=== PATIENT | female | born 1970 | race Caucasian/White ===

== ENCOUNTER → 2016-05-11 | Outpatient (CLI) | payer MEDICARE, OTHER ==
[~2016-05-11] MED LIST: ALBU2.5V7 AEROSOL; BUPR-51 PO; CALC-7 PO; DOCU-168 PO; ENOX40DI SQ; LISI-127 PO; MESA1.2T PO; METH5TAB85 PO; OMEP-29 PO; OXYC-544 PO; POLY17PO6 PO; POTA99TA16 PO; PREN1TAB77 PO; SULF1TAB3 PO; TRAM50TA53 PO; WARF4TAB41 PO
== END ==
LOC: LAB 17:42
PROVIDERS: ATTEND Internal Medicine Gastroenterology
DX: K50.90 Crohn's disease, unspecified, without complications (principal); K52.9 Noninfective gastroenteritis and colitis, unspecified
CPT/HCPCS: 36415; 86038; 86255

== ENCOUNTER → 2016-05-12 | Outpatient (CLI) | payer MEDICARE, OTHER ==
[2016-05-12 12:44] LABS: HCT - HEMATOCRIT 37.3 % (36-46); HGB - HEMOGLOBIN 12.3 GM/DL (12-16); MEAN CORPUSCULAR HGB 29.7 UUG (26-34); MEAN CORPUSCULAR VOLUME 90.1 UM3 (80-100); MEAN PLATELET VOLUME 10.2 UM3 (9.4-12.4); RED BLOOD COUNT 4.14 M/MM3 (4.00-5.20)
[2016-05-12 12:52] LABS: ALBUMIN 2.9 G/DL (3.5-5.0); ALBUMIN/GLOBULIN RATIO 0.8 RATIO (1.1-2.2); ALKALINE PHOSPHATASE 261 U/L (38-126); ALT (SGPT) 44 U/L (9-52); ANION GAP 14 MEQ/L (5-15); AST (SGOT) 52 U/L (14-36); BUN/CREATININE RATIO 14 RATIO (6-26); CALCIUM 8.5 MG/DL (8.4-10.2); CHLORIDE 104 MEQ/L (98-107); CO2 - CARBON DIOXIDE 22 MEQ/L (22-30); CREATININE 4.1 MG/DL (0.7-1.2); GLOMERULAR FILTRATION RATE 12; GLUCOSE 97 MG/DL (65-110); POTASSIUM 4.5 MEQ/L (3.6-5); SODIUM 140 MEQ/L (134-144); TOTAL PROTEIN 6.7 G/DL (6.3-8.2)
[2016-05-12 13:06] LABS: BAND NEUTROPHILS # 1.2 T/MM3
[2016-05-12 13:07] LABS: EOSINOPHILS # (MANUAL) 0.3 T/MM3 (0-0.5); LYMPHOCYTES # (MANUAL) 1.7 T/MM3 (1-4.8); MONOCYTES # (MANUAL) 0.3 T/MM3 (0-0.8); NEUTROPHILS #(MANUAL)-ABSOLUTE 9.6 T/MM3 (1.8-7.7)
[2016-05-12 18:34] LABS: C-REACTIVE PROTEIN 426.7 MG/L (0-9)
== END ==
LOC: LAB 12:18
PROVIDERS: ATTEND Nurse Practitioner
DX: M79.1 Myalgia (principal); R00.0 Tachycardia, unspecified
CPT/HCPCS: 36415; 80053; 82550; 85025; 86140

== ENCOUNTER → 2016-06-21 | Outpatient (CLI) | payer MEDICARE, OTHER ==
[~2016-06-21] MED LIST changes: -MESA1.2T PO
[2016-06-21 15:24] LABS: BASOPHILS % (AUTO) 0.6 % (0-2); EOSINOPHILS # (AUTO) 0.2 T/MM3 (0-0.5); EOSINOPHILS % (AUTO) 2.1 % (0-4); HCT - HEMATOCRIT 38.5 % (36-46); IMMATURE GRANULOCYTE # (AUTO) 0.01 T/MM3 (0.00-0.03); IMMATURE GRANULOCYTE % (AUTO) 0.1 % (0.0-0.5); LYMPHOCYTES # (AUTO) 2.3 T/MM3 (1-4.8); LYMPHOCYTES % (AUTO) 32.5 % (23-45); MEAN CORPUSCULAR HGB 30.6 UUG (26-34); MEAN CORPUSCULAR HGB CONC(MCHC 33.8 GM/DL (31-37); MEAN CORPUSCULAR VOLUME 90.6 UM3 (80-100); MEAN PLATELET VOLUME 9.1 UM3 (9.4-12.4); MONOCYTES # (AUTO) 0.4 T/MM3 (0-0.8); MONOCYTES % (AUTO) 5.9 % (0-9.0); NEUTROPHILS #(AUTO)-ABSOLUTE 4.2 T/MM3 (1.8-7.7); NEUTROPHILS % (AUTO) 58.8 % (33-66); RED BLOOD COUNT 4.25 M/MM3 (4.00-5.20); WBC - WHITE BLOOD COUNT 7.2 T/MM3 (4.5-11.0)
[2016-06-21 15:33] LABS: ALBUMIN 3.4 G/DL (3.5-5.0); ANION GAP 11 MEQ/L (5-15); BUN/CREATININE RATIO 14 RATIO (6-26); CALCIUM 8.8 MG/DL (8.4-10.2); CHLORIDE 112 MEQ/L (98-107); CO2 - CARBON DIOXIDE 24 MEQ/L (22-30); CREATININE 1.1 MG/DL (0.7-1.2); GLOMERULAR FILTRATION RATE 54; GLUCOSE 107 MG/DL (65-110); MAGNESIUM 2.2 MG/DL (1.6-2.3); PHOSPHORUS 3.2 MG/DL (2.5-4.5); POTASSIUM 4.2 MEQ/L (3.6-5); SODIUM 147 MEQ/L (134-144); URIC ACID 6.2 MG/DL (2.5-7.5)
== END ==
LOC: LAB 14:35
PROVIDERS: ATTEND Internal Medicine Nephrology
DX: N17.8 Other acute kidney failure (principal); E87.2 Acidosis; E83.51 Hypocalcemia; E83.39 Other disorders of phosphorus metabolism
CPT/HCPCS: 36415; 80069; 82306; 83735; 83970; 84550; 85025

== ENCOUNTER → 2016-07-08 | Outpatient (CLI) | payer MEDICARE, OTHER ==
[~2016-07-08] MED LIST changes: +AMLO5TAB2 PO; +MESA1.2T PO; +TORS20TA4 PO
--- NOTE | 2016-07-09 09:15 | DI ---
Indication: ITS.REASON: LT FOOT PAIN NO KNOW INJURY PROCEDURE: FOOT LEFT 3 VIEWS: Encounter: Initial Comparison: None Findings: There is no acute fracture, dislocation or malalignment identified. Type II accessory navicular noted. Presumably old traumatic ossicle inferior to the fibula. Chronic appearing corticated fractured enthesophyte arising from the inferior aspect of the calcaneus. Incidental note is also made of an os trigonum, a normal anatomic variant. Impression: No acute fracture. .
== END ==
LOC: IMA 15:35
PROVIDERS: ATTEND Nurse Practitioner Family
DX: M79.672 Pain in left foot (principal)